=== PATIENT | female | born 1945 | race Caucasian/White ===

== ENCOUNTER 2022-07-31 06:38 | Day surgery (SDC) | payer MEDICARE, SELFPAY ==
[2022-07-31] MEDS: TETRACAINE 0.5% OPHTH 1 DROP EYE-LEFT ×2 (06:57→07:05)
[2022-07-31] MEDS: KETOROLAC OPHTH 0.5% 1 DROP EYE-LEFT ×2 (06:57→07:05)
[2022-07-31 07:01] VITALS: BMI 35.3
[2022-07-31] MEDS: SODIUM CHLORIDE 0.9 % (FLUSH) 10 ML SYRINGE IVF (07:10)
[2022-07-31 07:14] VITALS: BP 142/75; PULSE 61; RESP 16; TEMP 36.6; O2SAT 96
[2022-07-31 07:17] LABS: SARS Antigen* negative (Negative)
--- NOTE | 2022-07-31 07:17 | SUR.PREOP ---
The eye drops brought by the patient (Ketorolac and Prednisolone and Ofloxacin) are examined and I have determined they are labeled by the patient's pharmacy for this patient as prescribed by the surgeon. The bottles are intact, recently obtained and appear to be correct.
[2022-07-31] MEDS: TETRACAINE 0.5% OPHTH 2 DROP EYE-LEFT (07:46)
[2022-07-31] MEDS: BALANCED SALT IRRIG SOLN 15 ML EYE-LEFT (07:52)
--- NOTE | 2022-07-31 08:08 | P.ANES_ITS ---
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
--- NOTE | 2022-07-31 08:21 | W.ANESCHARGE ---
Anesthesia Charges Start Date/Time Anesthesia Start Date: 07/31/22 Anesthesia Start Time: 07:42 Stop Date/Time Anesthesia Stop Date: 07/31/22 Anesthesia Stop Time: 08:21 Summary Extremes of Age - Over 70 or under 1: MDA
[2022-07-31 08:30] VITALS: BP 166/75; PULSE 56; RESP 18; TEMP 36.6; O2SAT 99
--- NOTE | 2022-07-31 10:04 | W.PM.OPTPROC ---
Procedure Note Date of procedure: 07/31/22 Will [facility] bill your pro fee for this procedure?: Yes Procedure Description: SURGEON: Estefania Solomon MD PREOPERATIVE DIAGNOSIS: Nuclear sclerotic cataract, left eye. POSTOPERATIVE DIAGNOSIS: Nuclear sclerotic cataract, left eye. NAME OF OPERATION: Phacoemulsification of cataract with posterior chamber intraocular lens implantation in the left eye. ANESTHESIA: Topical. ESTIMATED BLOOD LOSS: Less than 2 cc. COMPLICATIONS: None. PATHOLOGY SPECIMEN: None. INDICATIONS: See consult note for details. The risks, benefits and alternatives of the procedure were explained to the patient, who elected to proceed and signed informed consent to do so. PROCEDURE: The patient was brought to the pre-holding area where the left eye was identified as the operative eye. I placed my initials above this eye. The patient received eye drops consisting of 0.5% tetracaine, 1% tropicamide, 10% phenylephrine, and 0.5% ketorolac. The patient was then brought to the operating room where the left eye was again identified as the operative eye. The eye was prepped with Betadine and draped in the usual sterile ophthalmic fashion. A #15 super-sharp blade was used to create a paracentesis site. 1% non-preserved intracameral lidocaine was injected into the anterior chamber. Endocoat was injected into the anterior chamber. A 2.4 mm keratome was used to create a three-plane self-sealing incision 1 mm anterior to the temporal limbus. A cystotome was used to create an anterior capsular leaflet. The Utrata forceps were used to extend this to form a continuous curvilinear capsulorrhexis. Hydrodissection was performed. The cataract was removed with phacoemulsification using the [id number] technique. The irrigation and aspiration tip was used to remove the remaining cortex. Healon was injected into the capsular bag. An SHARON ZCB00 intraocular lens of 21.0 diopters was injected into the capsular bag. The irrigation and aspiration tip was used to remove the remaining viscoelastic. Balanced salt solution on a cannula was used to hydrate the wound, and the wound was found to be watertight. The pupil was noted to be round. DISPOSITION: The patient was taken to the recovery room and discharged to home in stable condition. The patient was instructed to call me or go to the emergency department with any sudden change, including dramatic loss of vision, severe pain in the eye or eyebrow region, nausea, or vomiting. The patient will follow up in the clinic tomorrow morning.
== END 2022-07-31 08:44 | disposition home or self-care (01) ==
PROVIDERS: Anesthesiology; PCP Family Medicine; Visit Provider Ophthalmology
PROC: (CPT 66984; principal; 2022-07-31 06:45)
DX: H25.12 Age-related nuclear cataract, left eye (principal)
CPT/HCPCS: 66984; 00142; 87426; 99100; A9270; J2250; J3010; V2632

== ENCOUNTER 2022-08-14 06:12 | Day surgery (SDC) | payer MEDICARE, SELFPAY ==
[2022-08-14] MEDS: KETOROLAC OPHTH 0.5% 1 DROP EYE-RIGHT ×3 (06:25→06:35)
[2022-08-14] MEDS: TETRACAINE 0.5% OPHTH 1 DROP EYE-RIGHT ×2 (06:25→06:30)
[2022-08-14 06:36] VITALS: BMI 35.3
[2022-08-14 06:40] VITALS: BP 142/76; PULSE 57; RESP 18; TEMP 36.2; O2SAT 98
[2022-08-14] MEDS: SODIUM CHLORIDE 0.9 % (FLUSH) 10 ML SYRINGE IVF (06:42)
--- NOTE | 2022-08-14 06:48 | SUR.PREOP ---
The eye drops brought by the patient (Ketorolac and Prednisolone) are examined and I have determined they are labeled by the patient's pharmacy for this patient as prescribed by the surgeon. The bottles are intact, recently obtained and appear to be correct.kylie da silva rn right eye
[2022-08-14] MEDS: BALANCED SALT IRRIG SOLN 15 ML EYE-RIGHT (07:02)
[2022-08-14] MEDS: TETRACAINE 0.5% OPHTH 2 DROP EYE-RIGHT (07:02)
--- NOTE | 2022-08-14 07:18 | W.ANESCHARGE ---
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
--- NOTE | 2022-08-14 07:24 | W.ANESCHARGE ---
Anesthesia Charges Start Date/Time Anesthesia Start Date: 08/14/22 Anesthesia Start Time: 07:08 Stop Date/Time Anesthesia Stop Date: 08/14/22 Anesthesia Stop Time: 07:39 Summary Extremes of Age - Over 70 or under 1: MDA
[2022-08-14 07:35] VITALS: BP 148/73; PULSE 53; RESP 16; TEMP 36.1; O2SAT 97
--- NOTE | 2022-08-14 09:11 | W.PM.OPTPROC ---
Procedure Note Date of procedure: 08/14/22 Will [facility] bill your pro fee for this procedure?: Yes Procedure Description: SURGEON: Estefania Solomon MD PREOPERATIVE DIAGNOSIS: Nuclear sclerotic cataract, right eye. POSTOPERATIVE DIAGNOSIS: Nuclear sclerotic cataract, right eye. NAME OF OPERATION: Phacoemulsification of cataract with posterior chamber intraocular lens implantation in the right eye. ANESTHESIA: Topical. ESTIMATED BLOOD LOSS: Less than 2 cc. COMPLICATIONS: None. PATHOLOGY SPECIMEN: None. INDICATIONS: See consult note for details. The risks, benefits and alternatives of the procedure were explained to the patient, who elected to proceed and signed informed consent to do so. PROCEDURE: The patient was brought to the pre-holding area where the right eye was identified as the operative eye. I placed my initials above this eye. The patient received eye drops consisting of 0.5% tetracaine, 1% tropicamide, 10% phenylephrine, and 0.5% ketorolac. The patient was then brought to the operating room where the right eye was again identified as the operative eye. The eye was prepped with Betadine and draped in the usual sterile ophthalmic fashion. A #15 super-sharp blade was used to create a paracentesis site. 1% non-preserved intracameral lidocaine was injected into the anterior chamber. Endocoat was injected into the anterior chamber. A 2.4 mm keratome was used to create a three-plane self-sealing incision 1 mm anterior to the temporal limbus. A cystotome was used to create an anterior capsular leaflet. The Utrata forceps were used to extend this to form a continuous curvilinear capsulorrhexis. Hydrodissection was performed. The cataract was removed with phacoemulsification using the [id number] technique. The irrigation and aspiration tip was used to remove the remaining cortex. Healon was injected into the capsular bag. An SHARON ZCB00 intraocular lens of 20.5 diopters was injected into the capsular bag. The irrigation and aspiration tip was used to remove the remaining viscoelastic. Balanced salt solution on a cannula was used to hydrate the wound, and the wound was found to be watertight. The pupil was noted to be round. DISPOSITION: The patient was taken to the recovery room and discharged to home in stable condition. The patient was instructed to call me or go to the emergency department with any sudden change, including dramatic loss of vision, severe pain in the eye or eyebrow region, nausea, or vomiting. The patient will follow up in the clinic tomorrow morning.
== END 2022-08-14 07:59 | disposition home or self-care (01) ==
PROVIDERS: PCP Family Medicine; Visit Provider Ophthalmology
PROC: (CPT 66984; principal; 2022-08-14 06:15)
DX: H25.11 Age-related nuclear cataract, right eye (principal)
CPT/HCPCS: 66984; 00142; 99100; A9270; J2250; J3010; V2632

== ENCOUNTER 2023-04-23 06:44 | Emergency (ER) | payer MEDICARE, SELFPAY ==
[2023-04-23 06:58] VITALS: BP 155/75; PULSE 75; RESP 20; TEMP 36.9; O2SAT 97; BMI 32.6
--- NOTE | 2023-04-23 07:21 | ED.GENADULT ---
HPI - General Adult General Time Seen by Provider: 07:21 Date Seen: 04/23/23 Chief complaint: Cough Stated complaint: respiratory issues Time Seen by Provider: 04/23/23 06:54 Source: patient, RN notes reviewed and old records reviewed Mode of arrival: ambulatory Limitations: no limitations History of Present Illness HPI narrative: 78-year-old female who comes in today with cough. Started having body aches, congestion about a week ago and now has more cough and rattling in her chest. Denies fever, chills, nausea, vomiting, diarrhea, abdominal pain, urinary symptoms, lower extremity swelling. Patient is overall healthy, no history of hypertension. Related Data Previous Rx's Medication Instructions Recorded amoxicillin 500 mg capsule 500 mg PO TID #21 caps 04/23/23 azithromycin 250 mg tablet See Rx Instructions PO .COMPLEX #6 04/23/23 tabs Allergies Allergy/AdvReac Type Severity Reaction Status Date / Time acetaminophen Allergy Mild unknown Verified 04/23/23 07:00 [From Darvocet-N] amoxicillin Allergy Mild Unknown Verified 04/23/23 07:00 propoxyphene Allergy Mild unknown Verified 04/23/23 07:00 [From Darvocet-N] [facility] Medical History (Updated 04/23/23 @ 07:24 by Silvestre Mckay MD) History of torn meniscus of knee ?Z87.828 - Personal history of other (healed) physical injury and trauma (ICD-10) History of wrist fracture ?Z87.81 - Personal history of (healed) traumatic fracture (ICD-10) Social History Smoking Status: Never smoker Do you use any of these nicotine containing products: None Second hand tobacco smoke exposure: No How often do you have a drink containing alcohol: never AUDIT-C Alcohol total score: 0 Non-prescribed substance use: denies use Caffeine: Yes (coffee 2 cups/day) Little interest or pleasure in doing things: not at all Feeling down, depressed, or hopeless: not at all Are you using contraception or practicing any form of control: No Exam Narrative: Exam Narrative: General: Well-developed and well-nourished, no acute distress Head: Atraumatic and normocephalic Eyes: Pupils are equal reactive, extraocular motions intact, conjunctiva clear ENT: External nose and ears are normal, posterior pharynx without erythema or exudate Neck: No midline cervical tenderness, full spontaneous range of motion the neck, trachea midline, no adenopathy Heart: Regular rate and rhythm no murmurs or thrills Lungs: Trace expiratory wheezes bilaterally with crackles in the mid and lower lung stout on the left Abdomen: Soft, nontender, nondistended with active bowel sounds Musculoskeletal: No tenderness, deformity, or edema Neurologic: Awake, alert, and oriented x3, no gross focal neurologic deficits, cranial nerves intact as tested Psych: Mood and affect are appropriate Skin: No rashes Const: Vital Signs, click to edit/add: Vital Signs - 24 hr 04/23/23 06:58 Temperature 98.5 F Pulse Rate [Right Pulse Oximeter] 75 Respiratory Rate 20 Blood Pressure [Ri ght Upper Arm] 155/75 H Pulse Oximetry 97 Oxygen Delivery Me thod Room Air Course Course ED Course: Patient seen and examined, prior records are reviewed. Patient presents today with cough and chest congestion. On exam, trace expiratory wheezes with marked crackles on the left. Symptoms are most consistent with community-acquired pneumonia. Patient is little bit concerned about take antibiotics but says she has tolerated amoxicillin in the past although this is on her allergy list. Will also cover with azithromycin. Consider chest x-ray for further evaluation but exam and symptoms consistent with community-acquired pneumonia. Recommended albuterol inhaler which patient declines. Vital Signs Vital signs: Initial Vital Signs Temperature 98.5 F 04/23/23 06:58 Temperature Source Temporal Artery Scan 04/23/23 06:58 Pulse Rate 75 04/23/23 06:58 Respiratory Rate 20 04/23/23 06:58 Blood Pressure 155/75 H 04/23/23 06:58 Blood Pressure Mean 101 04/23/23 06:58 Blood Pressure Position Sitting 04/23/23 06:58 Pulse Oximetry 97 04/23/23 06:58 Oxygen Delivery Method Room Air 04/23/23 06:58 Vital Signs Temperature 98.5 F 04/23/23 06:58 Pulse Rate 75 04/23/23 06:58 Respiratory Rate 20 04/23/23 06:58 Blood Pressure 155/75 H 04/23/23 06:58 Pulse Oximetry 97 04/23/23 06:58 Oxygen Delivery Method Room Air 04/23/23 06:58 Temperature 98.5 F 04/23/23 06:58 Pulse Rate 75 04/23/23 06:58 Respiratory Rate 20 04/23/23 06:58 Blood Pressure 155/75 H 04/23/23 06:58 Pulse Oximetry 97 04/23/23 06:58 Oxygen Delivery Method Room Air 04/23/23 06:58 Discharge Plan Discharge Clinical Impression: Community acquired pneumonia Patient Disposition: Home, Self-Care Condition: Stable Instructions: Community Acquired Pneumonia (ED) Additional Instructions: Continue Tylenol as needed for fever and pain Activity Level: Activity as Tolerated Discharge Diet: Regular Prescriptions: New amoxicillin 500 mg capsule 500 mg PO TID Qty: 21 0RF azithromycin 250 mg tablet See Rx Instructions .ROUTE .COMPLEX Qty: 6 0RF Rx Instructions: For 250 mg dose pack: take 500 mg today (day 1), then 250 mg for 4 days (days 2-5) Follow Up/Referrals: Joe Cr MD [Primary Care Provider] - Stand Alone [facility]: [facility] Info Inst[facility]
== END 2023-04-23 07:56 | disposition home or self-care (01) ==
PROVIDERS: Emergency Provider Family Medicine; PCP Family Medicine
DX: J18.9 Pneumonia, unspecified organism (principal)
CPT/HCPCS: 87631; 99283; 99284

== ENCOUNTER 2023-10-06 08:29 | Outpatient (CLI) | payer MEDICARE, SELFPAY ==
--- OUTSIDE RECORDS SUMMARY | 2023-10-06 08:31 | XMS_ITS | Clinical Summary ---
Author Organization [facility] Address [place], [place] [address] Care Team Providers Care Vegetable Washer Name Role Phone Joe Cr MD Primary Care Provider [phone] Allergies Active Allergy Reactions Criticality Noted Date Comments Amoxicillin *Unknown 06/21/2014 Propoxyphene-Acetaminophen Tachycardia 06/27/19 12 Medications Medication Sig Dispensed Refills Start Date End Date Status letrozole (FEMARA) 2.5 mg tablet Take 1 tablet by mouth once daily. 0 01/09/2015 Active loratadine (CLARITIN) 10 mg tablet Take 1 tablet by mouth once daily. 0 01/09/2015 Active polyethylene glycol-electrolyte (GOLYTELY) 236-22.74-6.74 -5.86 gram suspensionIndication s:Polyp of colon, unspecified part of colon, unspecified type Drink 2 liters the day before colonoscopy and 2 liters 6 hours before colonoscopy appointment 4000 mL 09/29/2023 Active Active Problems Problem Noted Date Diagnosed Date Colon polyp 07/30/2016 Overview: Colonoscopy 07/2016 polyps repeat in 5 years Malignant neoplasm of left breast 01/09/2015 Overview: T1b N0/stage I-A infiltrating ductal carcinoma, status post left lumpectomy, left sentinel node 06/22/3014 procedure followed by adjunctive radiation. Family history of CVA 11/19/2013 Family history of malignant neoplasm of gastrointestinal tract 09/06/2008 Overview: Colonoscopy 08/2008 normal repeat in 5 years Colonoscopy 06/2011 diverticulosis repeat in 5 years Encounters Date Type Department Care Team Description 09/30/2023 Orders Only [facility] [address] [place] [address] Ten Castro MD Procedure 07/07/2023 Telephone [facility] [address] [facility] [address] Ten Castro MD Screening from Last 3 Months Family History Medical History Relation Name Comments Cancer-colon Brother dx age 65 Cancer Sister lung cancer Cancer-breast No Family History Cancer-ovarian No Family History Cancer-prostate No Family History Relation Name Status Comments Brother Sister Social History Tobacco Use Types Packs/Day Years Used Date Smoking Tobacco: Former Cigarettes Q uit: 04/21/1970 Smokeless Tobacco: Never Alcohol Use Standard Drinks/Week Comments No 0 (1 standard drink = 0.6 oz pur e alcohol) Sex and Gender Information Value Date Recorded Sex Assigned at Not on file Gender Identity Not on file Sexual Orientation Not on file Obstetrics History Last Filed Vital Signs Vital Sign Reading Time Taken Comments Blood Pressure 142/84 10/26/2018 9:19 AM CDT Pulse 80 10/26/2018 9:19 AM CDT Temperature 36.8 ??C (98.2 ??F) 10/26/2018 9:19 AM CD T Respiratory Rate 16 10/26/2018 9:19 AM CDT Oxygen Saturation 97% 01/09/2015 9:32 AM CDT Inhaled Oxygen Concentration - - Weight 96.6 kg (213 lb) 10/26/2018 9:19 AM CDT Height 161.9 cm (5' 3.75) 10/26/2018 9:19 AM CD T Body Mass Index 36.85 10/26/2018 9:19 AM CDT Plan of Treatment Upcoming Encounters Date Type Department Care Team (Late st Contact Info) Description 10/06/2023 9:15 AM CDT Office Visit [facility] at [facility] [address] [facility] [place] [id number] Ten Castro MD [address] [place] [address] Arrived Health Maintenance Due Date Last Done Comments Tdap 1955 Depression screening for age 12+ 1956 Hepatitis C screening for age 18-79 1962 Tetanus booster 1964 Zoster (shingles) series for age 50+ (1 of 2) 04/20/19 94 Medicare Wellness for age 65+ 2009 Pneumococcal series for age 65+ (1 of 1 - PCV) 009 BMI (ht and wt on same day) for age 18+ 10/27/2019 0 10/26/2018 COVID-19 vaccine series (1 - 2022-24 season) 3 Influenza for age 65+ 12/21/2023 DEXA/DXA scan for age 65+ Completed 01/10/2016 Procedures Procedure Name Priority Date/Time Associated Diagnosis Comments COLONOSCOPY SCREENING Routine 10/06/2023 8:01 AM CDT Family history of malignant neoplasm of gastrointestinal tract XR DXA BONE DENSITY 2 SITES AXIAL Routine 01/10/2016 11:54 AM CDT Breast cancer (HC) from Last 3 Months or Most Recently Relevant to Health Maintenance Results * XR DXA BONE DENSITY 2 SITES AXIAL (01/10/2016 11:54 AM CDT) Anatomical Region Laterality Modality Spine, HIPS, HIPL, HIPR Bone Den sitometry Impressions 01/11/2016 10:53 AM CDT ?? 1. ??This patient's T-score meets the World Health Organization (WHO) criteria for low bone density (osteopenia) at one or more measured sites (T-score between less than -1.0 and greater than -2.5). ??The risk of osteoporotic fracture increases approximately two-fold for each 1.0 SD decrease in T-score. 2. ??Scoliosis. ?? FRAX (WHO Fracture Risk Assessment Tool) ?? 10-year Probability of Fracture: ?? Major Osteoporotic: ??10.4% Hip: ??1.9% Population: ??[place] () Based on Dual Femur Left Neck BMD More information and the calculation tool can be found at this website: ?? http://www.shef.ac.uk/FRAX/ The scan details are available in the patient's chart in [facility]. Aj Clinton M.D. ? Body/Breast Radiologist [email or web address] Narrative 01/11/2016 10:53 AM CDT DIAGNOSTIC DXA BONE MINERAL DENSITY, 01/10/2016 CLINICAL HISTORY: ??This is a 70-year-old female patient. ?? RISK FACTORS: ??The patient has estrogen deficiency. ??The patient has a loss of height by more than 1 inch. ??The patient has the following medical condition(s): ??history of breast cancer. ??The patient has taken for at least one month the following medications in the last year: ??hormone treatment for breast cancer. TECHNIQUE: ??Dual-energy x-ray absorptiometry system (axial skeleton). ??The patient was scanned on a Showcase scanner, fast-array scan mode. ?? The study was technically adequate. ?? FINDINGS: ? BMD T-Score Z-Score Lumbar Spine (L1 to L4) 1.312 g/cm2 ??1.1 ??1.8 Right Hip Femoral Neck 0.812 g/cm2 -1.6 -0.5 Right Total Hip ?? 0.825 g/cm2 -1.5 -0.6 Left Hip Femoral Neck 0.785 g/cm2 -1.8 -0.7 Left Total Hip ?? 0.755 g/cm2 -2.0 -1.2 Villa Campbell MD DEXA from Last 3 Months or Most Recently Relevant to Health Maintenance Advance Directives * Full Code (Latest Code Status on File) Date Activated Date Inactivated Comments 06/22/2014 12:01 PM 06/23/2014 2:27 AM Care Teams Vegetable Washer Relationship Specialty Start Date End Date Joe Cr MD [address] [place] [address] PCP - General Family Practice 07/17/16
--- NOTE | 2023-10-06 09:53 | W.ANESCHARGE ---
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
--- NOTE | 2023-10-06 10:32 | W.ANESCHARGE ---
Anesthesia Charges Start Date/Time Anesthesia Start Date: 10/06/23 Anesthesia Start Time: 10:00 Stop Date/Time Anesthesia Stop Date: 10/06/23 Anesthesia Stop Time: 10:25 Summary Extremes of Age - Over 70 or under 1: MDA
== END 2023-10-06 08:30 | disposition home or self-care (01) ==
LOC: OP CLINIC 08:30
PROVIDERS: PCP Family Medicine; Visit Provider Internal Medicine Gastroenterology
DX: K63.5 Polyp of colon (principal); K62.1 Rectal polyp; Z86.010 Personal history of colon polyps
CPT/HCPCS: 00811; 45381; 45385; 88305; 99100; J2704

== ENCOUNTER 2023-11-07 06:34 | Emergency (ER) | payer MEDICARE, SELFPAY ==
[2023-11-07 06:41] VITALS: BP 218/111; PULSE 70; RESP 16; TEMP 36.2; O2SAT 98; BMI 35.8
--- NOTE | 2023-11-07 07:29 | ED.GENADULT ---
HPI - General Adult General Date Seen: 11/07/23 Chief complaint: Extremity Pain/Injury, Lower Stated complaint: R leg swelling, pain Time Seen by Provider: 11/07/23 07:08 Source: patient Mode of arrival: ambulatory Limitations: no limitations History of Present Illness HPI narrative: Patient is a 78-year-old female who has been having low back pain that radiates down her right leg for the past couple of days. She self-referred herself to [facility] and had an evaluation yesterday. The x-rayed her low back and her knees and diagnosed her with sciatica. She has been taking Tylenol. She was not given anything else for pain. It was recommended that she start seeing a chiropractor and she has an appointment in three days. She comes emergency department because the pain kept her up last night. She tells me that she is allergic to everything and that she is not interested in narcotics or marijuana to treat her pain. She tells me that her stomach would tolerated an anti-inflammatory medication. She denies any bowel or bladder dysfunction. She has never had this problem previously. Her blood pressure is very high but she tells me that the last time she was in the clinic it was normal. Related Data Previous Rx's ?Medication ?Instructions ?Recorded peg 3350-electrolytes 236 240 ml PO ONCE #4,000 mL 06/16/23 gram-22.74 gram-6.74 gram-5.86 gram solution (Golytely) Allergies Allergy/AdvReac Type Severity Reaction Status Date / Time acetaminophen Allergy Mild unknown Verified 09/09/23 08:13 [From Darvocet-N] amoxicillin Allergy Mild Unknown Verified 09/09/23 08:13 propoxyphene Allergy Mild unknown Verified 09/09/23 08:13 [From Darvocet-N] Review of Systems Narrative: Review of systems is outlined above otherwise noted to be negative. [facility] Medical History (Updated 11/07/23 @ 07:26 by Vadim Yeh MD) Cataract ?H26.9 - Unspecified cataract (ICD-10) History of torn meniscus of knee ?Z87.828 - Personal history of other (healed) physical injury and trauma (ICD-10) History of wrist fracture ?Z87.81 - Personal history of (healed) traumatic fracture (ICD-10) Social History Smoking Status: Never smoker Do you use any of these nicotine containing products: None Second hand tobacco smoke exposure: No How often do you have a drink containing alcohol: never AUDIT-C Alcohol total score: 0 Non-prescribed substance use: denies use Caffeine: Yes (coffee 2 cups/day) Little interest or pleasure in doing things: not at all Feeling down, depressed, or hopeless: not at all Are you using contraception or practicing any form of control: No Exam Narrative: Exam Narrative: Vitals noted. Lungs are clear. Heart is regular rate rhythm without murmur. She has myofascial tightness and tenderness in the low back. No palpable spasms. She has little bit of swelling of the right leg that just came up after wearing some type of tight band that was recommended to her. Negative Christopher sign. No warmth, redness, palpable tenderness. Normal motor and sensory exam lower extremities. Straight leg raising is positive on the right in the seated position. Const: Vital Signs, click to edit/add: Vital Signs - 24 hr 11/07/23 06:41 Temperature 97.2 F L Pulse Rate [Pulse Oximeter] 70 Respiratory Rate 16 Blood Pressure [Ri ght Upper Arm] 218/111 H Pulse Oximetry 98 Oxygen Delivery Me thod Room Air Course Course ED Course: Patient seen and examined. She has just had a full evaluation by orthopedist and I see no indication for any diagnostic workup here. She has really done very little to treat the symptoms thus far. Vital Signs Vital signs: Initial Vital Signs Temperature 97.2 F L 11/07/23 06:41 Temperature Source Temporal Artery Scan 11/07/23 06:41 Pulse Rate 70 11/07/23 06:41 Respiratory Rate 16 11/07/23 06:41 Blood Pressure 218/111 H 11/07/23 06:41 Blood Pressure Mean 146 H 11/07/23 06:41 Blood Pressure Position Sitting 11/07/23 06:41 Pulse Oximetry 98 11/07/23 06:41 Oxygen Delivery Method Room Air 11/07/23 06:41 Vital Signs Temperature 97.2 F L 11/07/23 06:41 Pulse Rate 70 11/07/23 06:41 Respiratory Rate 16 11/07/23 06:41 Blood Pressure 218/111 H 11/07/23 06:41 Pulse Oximetry 98 11/07/23 06:41 Oxygen Delivery Method Room Air 11/07/23 06:41 Temperature 97.2 F L 11/07/23 06:41 Pulse Rate 70 11/07/23 06:41 Respiratory Rate 16 11/07/23 06:41 Blood Pressure 218/111 H 11/07/23 06:41 Pulse Oximetry 98 11/07/23 06:41 Oxygen Delivery Method Room Air 11/07/23 06:41 Discharge Plan Discharge Clinical Impression: Sciatica Patient Disposition: Home, Self-Care Condition: Stable Additional Instructions: Heat in the morning, ice after activity. Tylenol 1000 mg every 6 hours as needed for pain. Ibuprofen 600 mg every 8 hours as needed for pain. See her chiropractor Friday as scheduled. Follow-up with your PCP if symptoms are not improving over the next 1-2 weeks. Prescriptions: No Action peg 3350-electrolytes [Golytely] 236-22.74-6.74 -5.86 gram recon soln 240 ml PO ONCE Qty: 4000 0RF Rx Instructions: until fecal effluent is clear Follow Up/Referrals: Joe Cr MD [Primary Care Provider] - Stand Alone Forms: MyHealth Info Instructions
--- OUTSIDE RECORDS SUMMARY | 2023-11-07 07:33 | XMS_ITS | Clinical Summary ---
Author Organization [facility] Address [place], [place] [address] Care Team Providers Care Plate Cutter Name Role Phone Joe Cr MD Primary Care Provider [phone] Allergies Active Allergy Reactions Criticality Noted Date [...] Colonoscopy 07/2016 polyps repeat in 5 years Colonoscopy 09/2023 2-TA, repeat in 7 years Malignant neoplasm of left breast 01/09/2015 Overview: T1b N0/stage I-A infiltrating ductal carcinoma, status post left lumpectomy, left sentinel node 06/22/3014 procedure followed by adjunctive radiation. Family history of CVA 11/19/2013 Family history of malignant neoplasm of gastrointestinal tract 09/06/2008 Overview: Colonoscopy 08/2008 normal repeat in 5 years Colonoscopy 06/2011 diverticulosis repeat in 5 years Encounters Date Type Department Care Team Description 10/06/2023 9:15 AM CDT Office Visit [facility] [address] [place] [address] Ten Castro MD 10/06/2023 Lab Requisition [facility] [phone] Ten Castro MD 09/30/2023 Orders Only [facility] [address] [place] [address] Ten Castro MD Procedure from Last 3 Months Family History Medical [...] drink = 0.6 oz pur e alcohol) Social Connections Answer Date Recorded Frequency of Communication with Friends and Fami ly Not on file 10/07/2023 Sex and Gender Information Value Date Recorded [...] 10/26/2018 9:19 AM CDT Plan of Treatment Health Maintenance Due Date Last Done Comments COVID-19 vaccine series (#1) 1949 Tdap 1955 Depression screening for age 12+ 1956 Hepatitis C screening for age 18-79 1962 Zoster (shingles) series for age 50+ (1 of 2) 04/20/19 63 Tetanus booster 1964 Medicare Wellness for age 65+ 2009 Pneumococcal series for age 65+ (1 of 1 - PCV) 009 BMI (ht and wt on same day) for age 18+ 10/27/2019 0 10/26/2018 Influenza for age 65+ 12/21/2023 DEXA/DXA scan for age 65+ Completed 01/10/2016 Procedures Procedure Name Priority Date/Time Associated Diagnosis Comments LAB TRACKING EVENT Routine 10/06/2023 10 :10 AM CDT PATH TISSUE EXAM Routine 10/06/2023 10:1 0 AM CDT COLONOSCOPY SCREENING Routine 10/06/2023 12:00 AM CDT History of colon polyps XR DXA BONE DENSITY 2 SITES AXIAL Routine 01/10/2016 11:54 AM CDT Breast cancer (HC) from Last 3 Months or Most Recently Relevant to Health Maintenance Results * LAB TRACKING EVENT (10/06/2023 10:10 AM CDT) Other (Other) Client Collect / Unknown 10/06/2023 10:10 AM CDT 10/06/2023 9:57 PM CDT Ten Castro MD LAB BILL ONLY [facility] [address] [place] [address], * PATH TISSUE EXAM (10/06/2023 10:10 AM CDT) Case Report Pathology Report ?Case: [id number] ? Authorizing Provider: ??Ten Castro MD ?? Collected: ? 10/06/2023 1010 ? Ordering Location: ? [facility] ?Received: ?10/07/2023 0819 ? Pathologist: ? De Martinez MD ? Specimens: ?? A) - Ascending Colon Polyp ? B) - Rectal Polyp ? 10/08/2023 11:31 AM CDT [facility] Final Diagnosis A) COLON, ASCENDING, POLYPECTOMY: 1. Tubular adenoma 2. Negative for high grade dysplasia 3. Per the colonoscopy report: ?? a. Polyp size: 3 mm ?? b. Resection: Complete ?? c. Retrieval: Complete B) RECTUM, POLYPECTOMY: 1. Tubular adenoma 2. Negative for high grade dysplasia 3. Per the colonoscopy report: ?? a. Polyp size: 4 mm ?? b. Resection: Complete ?? c. Retrieval: Complete 10/08/2023 11:31 AM CDT [facility] Clinical Information Ms. Biggs is a 78 y.o. with history of 2 tubular adenomas in 2017. Now undergoes surveillance colonoscopy resulting in polypectomy x 2. 10/08/2023 11:31 AM CDT [facility] Gross Description A) Received in formalin, labeled with the patient's name and ascending colon polyp, are 4 polypoid soft pale-dumont tissues, ranging 0.2 and 0.4 cm which are submitted in toto in 1 cassette. B) Received in formalin, labeled with the patient's name and rectal polyp, is a 0.5 cm rubbery dumont sessile polyp. ??The margin is inked blue and the polyp is bisected. ??Entirely submitted 1 cassette. The specimen was placed in formalin at 1010 on 10/06/2023. LDW 10/07/2023 ?? 10/08/2023 11:31 AM CDT [facility] Microscopic Description The final diagnosis is based on microscopic examination of appropriate sections of all specimens. 10/08/2023 11:31 AM CDT [facility] Additional Information Interpreted at [facility] - [address], [place] [address] 10/08/2023 11:31 AM CDT [facility] Other (Ascending Colon Polyp) 10/06/2023 10:10 AM CDT 10/07/2023 8:19 AM CDT Specimen (specimen) (Rectal Polyp ) 10/06/2023 10:10 AM CDT 10/07/2023 8:19 AM CDT Ten Castro MD PATHOLOGY/CYTOLOG [facility] [address] [place] [address], * COLONOSCOPY SCREENING (10/06/2023 12:00 AM CDT) Ten Castro MD GI PROCEDURE ORD * XR DXA BONE DENSITY 2 SITES [...] are [facility] in the [facility] Aj Clinton M.D. ? Body/Breast Radiologist [email or web address] Narrative 01/11/2016 10:53 AM CDT DIAGNOSTIC DXA [...] skeleton). ??The patient was scanned on a DivvyDown scanner, fast-array scan mode. ?? The study [...] 12:01 PM 06/23/2014 2:27 AM Care Teams Plate Cutter Relationship Specialty Start Date End Date Joe Cr MD [address] [place] [phone] PCP - General Family Practice 07/17/16
[2023-11-07 07:40] VITALS: BP 152/106; PULSE 68; RESP 16; O2SAT 96
== END 2023-11-07 07:50 | disposition home or self-care (01) ==
LOC: ED 07:32
PROVIDERS: Emergency Provider Family Medicine; PCP Family Medicine
DX: M54.41 Lumbago with sciatica, right side (principal)
CPT/HCPCS: 99281; 99283

== ENCOUNTER 2024-04-22 07:49 | Outpatient (CLI) | payer MEDICARE, SELFPAY | END 2024-04-22 07:50 | disposition home or self-care (01) | PROVIDERS: PCP Family Medicine; Referring Provider Family Medicine; Visit Provider Family Medicine | DX: I10 Essential (primary) hypertension (principal); Z13.6 Encounter for screening for cardiovascular disorders | CPT/HCPCS: 80053; 80061 ==

== ENCOUNTER 2024-05-10 07:35 | Outpatient (CLI) | payer MEDICARE, SELFPAY | END 2024-05-10 07:36 | disposition home or self-care (01) | LOC: NFLDREF 05-18 06:40 | PROVIDERS: PCP Family Medicine; Referring Provider Family Medicine; Visit Provider Family Medicine | DX: Z01.818 Encounter for other preprocedural examination (principal) | CPT/HCPCS: 80048 ==

== ENCOUNTER 2024-07-28 10:45 | Outpatient (RCR) | payer MEDICARE, SELFPAY | END 2024-07-28 11:30 | disposition home or self-care (01) | PROVIDERS: PCP Family Medicine; Visit Provider Orthopaedic Surgery | DX: M17.11 Unilateral primary osteoarthritis, right knee (principal); S83.206A Unspecified tear of unspecified meniscus, current injury, right knee, initial encounter; Z96.651 Presence of right artificial knee joint; M25.561 Pain in right knee; R26.2 Difficulty in walking, not elsewhere classified; Z51.89 Encounter for other specified aftercare | CPT/HCPCS: 97110; 97116; 97140; 97161; 97535 ==